=== PATIENT | male | born 1970 | race Two or more races ===

== ENCOUNTER 2020-08-02 20:37 | Inpatient (IN) | payer MEDICAID, SELFPAY ==
[~2020-08-02] VITALS: Ht 172.7 cm; Wt 90.3 kg
[2020-08-02 20:50] VITALS: BP 133/76
--- NOTE | 2020-08-02 21:04 | NUR ---
PT AMBUALTED TO BED 6 WITH STEADY GAIT. PT PLACED IN GOWN EKG BEING PERFORMED AT BEDSIDE.
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
[2020-08-02] MEDS ORDERED: NACL 0.9% 500 ML IV ONE (21:15)
[2020-08-02] MEDS ORDERED: ASPIRIN 81 MG TAB.CHEW PO ONE (21:15)
--- NOTE | 2020-08-02 21:18 | NUR ---
XRAY AT BEDSIDE.
--- NOTE | 2020-08-02 21:29 | NUR ---
LAB AT BEDSIDE.
[2020-08-02 21:39] LABS: BASOPHILS # (AUTO) 0.1 K/uL (0.00-0.22); BASOPHILS % (AUTO) 0.7 % (0.0-2.0); EOSINOPHILS # (AUTO) 0.3 K/uL (0-0.4); EOSINOPHILS % (AUTO) 2.4 % (0.0-4.0); HEMATOCRIT 40.5 % (36-52); HEMOGLOBIN 13.8 g/dL (12.0-18.0); LYMPHOCYTES # (AUTO) 3.2 K/uL (2.0-11.5); LYMPHOCYTES % (AUTO) 29.4 % (20.5-51.1); MEAN CORPUSCULAR HEMOGLOBIN 30 pg (27-31); MEAN CORPUSCULAR HGB CONC 34 g/dL (33-37); MEAN CORPUSCULAR VOLUME 89.3 fL (80-94); NEUTROPHILS # (AUTO) 6.5 K/uL (1.8-7.7); NEUTROPHILS % (AUTO) 58.5 % (42.2-75.2); PLATELET COUNT (AUTO) 227 K/uL (140-450); RED BLOOD CELL COUNT(AUTO) 4.53 MIL/uL (4.20-6.10); RED CELL DISTRIBUTION WIDTH 13.4 % (11.6-13.7)
[2020-08-02 21:58] LABS: PROTHROMBIN TIME 10.4 secs (10.8-13.4)
[2020-08-02 22:12] LABS: ALBUMIN 3.8 g/dL (3.4-5.0); ANION GAP 11.2 (8-16); CARBON DIOXIDE 27.5 mmol/L (21-32); CREATININE 0.9 mg/dL (0.6-1.3); POTASSIUM 3.7 mmol/L (3.5-5.1); TOTAL BILIRUBIN 0.2 mg/dL (0.0-1.0)
[2020-08-02] MEDS ORDERED: KETOROLAC 30 MG/ML VIAL IVP ONE (23:10)
--- NOTE | 2020-08-02 23:20 | NUR ---
PT GIVEN TORADOL FOR PAIN MANAGEMENT. PT PAIN 6/10 CHEST PAIN. PT REMAINS ON [employer]. VSS. BED IS LOCKED AND IN LOWEST POSTION.
--- NOTE | 2020-08-02 23:23 | NUR ---
LAB AT BEDSIDE.
--- NOTE | 2020-08-03 00:11 | NUR ---
PT O2SAT @ 92 % ON RA. PT GIVEN 2L OF O2. O2 SAT @ 98%. ERMD MADE AWARE.
--- NOTE | 2020-08-03 03:50 | NUR ---
PT COVID ANTIGEN COLLECTED AND SENT TO LAB.
--- NOTE | 2020-08-03 04:13 | NUR ---
PT AMBULATED TO RESTROOM WITH STEADY GAIT.
[2020-08-03] MEDS ORDERED: ALBUTEROL SULFATE/IPRATROPIU 3 ML SOL IH PRN (05:10)
--- NOTE | 2020-08-03 05:50 | NUR ---
Patient appears to be resting comfortably in bed. Pt remains on monitoring manager, vital signs within normal limits. Respirations even and unlabored. Bed is locked and in lowest position.
--- NOTE | 2020-08-03 07:24 | NUR ---
PATIENT HAS BEEN SCREENED AND CATEGORIZED MODERATE NUTRITION RISK. PATIENT WILL BE SEEN WITHIN 3-5 DAYS OF ADMISSION. 08/06/20-08/08/20 ANISA PEGUERO MS, RDN
--- NOTE | 2020-08-03 07:28 | NUR ---
REPORT GIVEN TO MARLENA MONTES DE OCA. TRANSFER OF CARE.
--- NOTE | 2020-08-03 07:30 | NUR ---
RECEIVED REPORT FROM HALIMA MONTES DE OCA. UNABLE TO CONFIRMED WITH HALIMA MONTES DE OCA WHETHER THE 0600 TROPONIN WAS DRAWN BY LAB. CALLED LAB, TECH STATES IT WAS NOT DRAWN, WILL COME DRAW PT NOW.
--- NOTE | 2020-08-03 07:38 | NUR ---
POTATO BUCKER AT BEDSIDE TO DRAW TROPONIN
--- NOTE | 2020-08-03 08:14 | NUR ---
PT SITTING UP IN BED, EATING BREAKFAST
--- NOTE | 2020-08-03 10:00 | NUR ---
PT AMB TO RESTROOM, STEADY GAIT
--- NOTE | 2020-08-03 10:04 | NUR ---
PT AMB BACK TO BED 06, STEADY GAIT. CONNECTED TO BEDSIDE MONITOR. NO PAIN AT THIS TIME.
[2020-08-03] MEDS ORDERED: DOCUSATE SODIUM 100 MG GELCAP PO PRN (13:20)
[2020-08-03] MEDS ORDERED: POTASSIUM CHLORIDE 10 MEQ TABER PO PRN (13:20)
[2020-08-03] MEDS ORDERED: LORazepam 2 MG/ML VIAL IM/IVP PRN (13:20)
[2020-08-03] MEDS ORDERED: ZOLPIDEM 5 MG TAB PO PRN (13:20)
[2020-08-03] MEDS ORDERED: MAG SULF 2000 MG/WATER PREMIX 50 ML IV PRN (13:20)
[2020-08-03] MEDS ORDERED: ACETAMINOPHEN 325 MG TAB PO PRN (13:20)
[2020-08-03] MEDS ORDERED: MORPHINE SULFATE 2 MG/ML SYR IVP PRN (13:20)
[2020-08-03] MEDS ORDERED: HYDROcodone/APAP 5/325 MG 1 TAB TAB PO PRN (13:20)
[2020-08-03] MEDS ORDERED: ONDANSETRON 4 MG/2 ML VIAL IM/IVP PRN (13:20)
--- NOTE | 2020-08-03 13:45 | NUR ---
SHEAR ASSEMBLER AT BEDSIDE FOR BLOOD DRAW, INCLUDING TROPONIN
[2020-08-03 14:05] LABS: BASOPHILS # (AUTO) 0.1 K/uL (0.00-0.22); BASOPHILS % (AUTO) 1.2 % (0.0-2.0); EOSINOPHILS # (AUTO) 0.2 K/uL (0-0.4); EOSINOPHILS % (AUTO) 1.8 % (0.0-4.0); HEMATOCRIT 41.8 % (36-52); HEMOGLOBIN 14.2 g/dL (12.0-18.0); LYMPHOCYTES # (AUTO) 2.5 K/uL (2.0-11.5); LYMPHOCYTES % (AUTO) 21.1 % (20.5-51.1); MEAN CORPUSCULAR HEMOGLOBIN 30 pg (27-31); MEAN CORPUSCULAR HGB CONC 34 g/dL (33-37); MEAN CORPUSCULAR VOLUME 89.3 fL (80-94); MONOCYTES # (AUTO) 1.3 K/uL (0.8-1.0); MONOCYTES % (AUTO) 10.6 % (1.7-9.3); NEUTROPHILS # (AUTO) 7.7 K/uL (1.8-7.7); NEUTROPHILS % (AUTO) 65.3 % (42.2-75.2); PLATELET COUNT (AUTO) 236 K/uL (140-450); RED BLOOD CELL COUNT(AUTO) 4.68 MIL/uL (4.20-6.10); RED CELL DISTRIBUTION WIDTH 13.2 % (11.6-13.7); WHITE BLOOD COUNT (AUTO) 11.8 K/uL (4.8-10.8)
[2020-08-03] MEDS: NACL 0.9% 1,000 ML IV SCH (14:12)
--- NOTE | 2020-08-03 14:14 | NUR ---
URINAL GIVEN TO PT, INSTRUCTED PT ON PROCEDURE FOR UA COLLECTION ORDERED BY ADMITTING DOC. PT VERBALIZED UNDERSTANDING & WILL PROVIDE URINE SAMPLE WHEN ABLE TO.
[2020-08-03 14:31] LABS: ANION GAP 10.8 (8-16); CARBON DIOXIDE 26.1 mmol/L (21-32); CREATININE 0.6 mg/dL (0.6-1.3); POTASSIUM 3.9 mmol/L (3.5-5.1)
[2020-08-03 14:45] LABS: CHOL/HDL RATIO 3.3 (1-4.5); MAGNESIUM 1.9 mg/dL (1.8-2.4); PHOSPHORUS 3.7 mg/dL (2.5-4.9); THYROID STIMULATING HORMONE 1.05 uIU/mL (0.34-3.74)
--- NOTE | 2020-08-03 15:01 | NUR ---
urine sample and MRSA sample handed to sewage treatment plant operator
[2020-08-03 15:03] LABS: PROTHROMBIN TIME 10.4 secs (10.8-13.4)
--- NOTE | 2020-08-03 17:27 | NUR ---
Dr. Holder evaluating pt at bedside
--- NOTE | 2020-08-03 18:00 | NUR ---
Patient will be admitted to care of Dr. SON. Admited to TELE. Will go to room 111B. Belongings list completed. Report to TAVON FULLER.
--- NOTE | 2020-08-03 18:00 | NUR ---
PATIENT ARRIVED FROM ER, ABLE TO AMBULATE WITH STEADY GAIT TO [facility]. NO DISTRESS NOTED. DENIES ANY PAIN. RESPIRATIONS EVEN, UNLABORED, ON ROOM AIR. IV SITE INTACT, PATENT, AND INFUSING IVF PER MD ORDERS. ORIENTED PATIENT TO ROOM AND CALL LIGHT. REVIEWED PLAN OF CARE WITH PATIENT. PATIENT VERBALIZED UNDERSTANDING. SAFETY MEASURES IN PLACE, CALL LIGHT WITHIN REACH. WILL CONTINUE TO MONITOR.
[2020-08-03 18:03] LABS: APPEARANCE,URINE CLEAR (CLEAR); BILIRUBIN,URINE NEGATIVE (NEGATIVE); BLOOD, URINE NEGATIVE (NEGATIVE); COLOR,URINE YELLOW (YELLOW); LEUKOCYTE ESTERASE ,URINE NEGATIVE (NEGATIVE); NITRITE, URINE NEGATIVE (NEGATIVE); PH,URINE 6.5 (5.0-9.0); UGLUCOSE 3+ (NEGATIVE)
[2020-08-03 18:23] LABS: BARBITURATE, URINE NEGATIVE ng/ml (NEG <=200); BENZODIAZEPINE, URINE NEGATIVE ng/mL (NEG <=200); CANNABINOID, URINE NEGATIVE ng/mL (NEG <=50); COCAINE, URINE NEGATIVE ng/mL (NEG <=300); OPIATE, URINE NEGATIVE ng/mL (NEG <=2000); PHENCYCLIDINE SCREEN,URINE NEGATIVE ng/mL (NEG <=25)
--- NOTE | 2020-08-03 19:15 | NUR ---
RECEIVED PT BEDSIDE REPORT FROM DAYSHIFT NURSE. NEW ADMIT FROM ER. TELE PATIENT. AWAKE AND ALERT TIMES 4. RESPIRATION EVEN UNLABORED ON ROOM AIR. SKIN INTACT AND DRY WITH HEPLOCK LEFT WRIST 22 GAUGE. CLEAR AND PATENT. ORIENTED TO HOSPITAL ROUTINE. PLAN OF CARE DISCUSSED AND VERBALIZE UNDERSTANDING. BED IN LOW POSITION AND CALL LIGHT WITHIN REACH. WILL CONTINUE TO MONITOR.
--- NOTE | 2020-08-03 19:25 | NUR ---
GAVE REPORT TO POLICE ARTIST NURSE FOR CONTINUITY OF CARE. PATIENT IN STABLE CONDITION.
[2020-08-03 20:00] VITALS: BP 137/81
--- NOTE | 2020-08-03 21:20 | NUR ---
XRAY OF THE SCAPULA DONE AT BEDSIDE. WILL FOLLOW UP WITH RESULTS
--- NOTE | 2020-08-03 22:30 | NUR ---
INSTRUCTED PT NOT TO EAT OR DRINK ANYTHING FROM [place] UNTIL US ABDOMEN DONE IN AM. VERBALIZED UNDERSTANDING.
[2020-08-04] VITALS: BP 107/61
--- NOTE | 2020-08-04 01:00 | NUR ---
MADE ROUNDS. PT ASLEEP. NO S/S OF ANY DISCOMFORT NOTED.
--- NOTE | 2020-08-04 02:53 | NUR ---
LATE ENTRY----- NS BOLUS DISCONTINUED AT 0400
--- NOTE | 2020-08-04 03:00 | NUR ---
MADE ROUNDS. PT IS SLEEPING. NO S/S OF DISCOMFORT. WILL CONTINUE TO MONITOR.
[2020-08-04 04:00] VITALS: BP 114/70
--- NOTE | 2020-08-04 05:19 | NUR ---
PT CC 6/10 PAIN IN CHEST. PT MEDICATED WITH NORCO. WILL REASSESS IN AN HOUR.
[2020-08-04] MEDS: NACL 0.9% 1,000 ML IV SCH (06:00)
--- NOTE | 2020-08-04 06:30 | NUR ---
CHECKED PT. PT ASLEEP LAYING IN BED. NO S/S OF RESPIRATORY DISTRESS. WILL CONTINUE TO MONITOR.
--- NOTE | 2020-08-04 07:30 | NUR ---
ENDORSED PT IN STABLE CONDITION TO AM NURSE
[2020-08-04 07:35] LABS: BASOPHILS # (AUTO) 0.1 K/uL (0.00-0.22); BASOPHILS % (AUTO) 1.2 % (0.0-2.0); EOSINOPHILS # (AUTO) 0.2 K/uL (0-0.4); EOSINOPHILS % (AUTO) 2.3 % (0.0-4.0); HEMATOCRIT 41.5 % (36-52); HEMOGLOBIN 14.2 g/dL (12.0-18.0); LYMPHOCYTES # (AUTO) 2.1 K/uL (2.0-11.5); LYMPHOCYTES % (AUTO) 22.5 % (20.5-51.1); MEAN CORPUSCULAR HEMOGLOBIN 31 pg (27-31); MEAN CORPUSCULAR HGB CONC 34 g/dL (33-37); MEAN CORPUSCULAR VOLUME 89.8 fL (80-94); MONOCYTES % (AUTO) 10.1 % (1.7-9.3); NEUTROPHILS % (AUTO) 63.9 % (42.2-75.2); PLATELET COUNT (AUTO) 224 K/uL (140-450); RED BLOOD CELL COUNT(AUTO) 4.63 MIL/uL (4.20-6.10); RED CELL DISTRIBUTION WIDTH 13.2 % (11.6-13.7); WHITE BLOOD COUNT (AUTO) 9.5 K/uL (4.8-10.8)
[2020-08-04 07:37] LABS: ANION GAP 10.8 (8-16); CARBON DIOXIDE 27.4 mmol/L (21-32); CREATININE 0.6 mg/dL (0.6-1.3); POTASSIUM 4.2 mmol/L (3.5-5.1)
[2020-08-04 07:39] LABS: PHOSPHORUS 2.9 mg/dL (2.5-4.9)
--- NOTE | 2020-08-04 07:47 | NUR ---
REC'D REPORT FROM NIGHT NURSE, PT AWAKE, ALERT, STABLE, COMFORTABLE IN BED. CALL LIGHT WITHIN REACH, BED LOWEST POSITION. IV SITE L.HAND, DRY, CLEAN INTACT PATENT RUNNING NS 60ML/HR. WILL CONTINUE TO MONITOR
[2020-08-04 08:07] LABS: T4 (THYROXINE) 8.8 ug/dL (4.5-12.0)
[2020-08-04 08:10] VITALS: BP 114/85
[2020-08-04] MEDS ORDERED: IBUP-1842 PO (08:48)
[2020-08-04] MEDS ORDERED: NICOTINE TRANSD SYS 14 MG/24 HR PATCH TD SCH (09:00)
--- NOTE | 2020-08-04 09:40 | NUR ---
ADMINISTERED SCHEDULED MEDICATION PER DRKimberly'S ORDER, HEPARING SUNCUTANEOUS GIVEN ON L. ABD ADIPOSE TISSUE, NICOTINE PATCH APPLIED TO L. UPPER EXTREMITY. IV INTACT, DRY, PATENT, S1S2 NOTED, LUISA LUNGS CLEAR, NO EDEMA. PT ABD SOFT, NONTENDER. C/O CONSTIPATION. WILL PROVIDE STOOL SOFTENER INDICATED PRN. DENIES CHEST PAIN AT THIS TIME
--- NOTE | 2020-08-04 09:50 | NUR ---
IMAGING AT PT'S BEDSIDE FOR ABD ULTRASOUND
[2020-08-04] MEDS ORDERED: FLU VACCINE QS2020-21 0.5 ML SYR IMVAC PRN (11:40)
[2020-08-04 12:00] VITALS: BP 128/69
== END 2020-08-04 13:00 | disposition home or self-care (01) | DRG 203 ==
LOC: MED 20:37 → MTU 08-03 00:26
PROVIDERS: ADMIT Family Medicine; ATTEND Family Medicine
DX: M94.0 Chondrocostal junction syndrome [Tietze] (principal); Z23 Encounter for immunization; Z20.828 Contact with and (suspected) exposure to other viral communicable diseases; I24.9 Acute ischemic heart disease, unspecified; F17.210 Nicotine dependence, cigarettes, uncomplicated; R73.03 Prediabetes; Z87.828 Personal history of other (healed) physical injury and trauma
CPT/HCPCS: 36415; 71045; 73000; 76700; 80048; 80053; 80305; 81003; 82150; 83036; 83690; 83735; 83880; 84100; 84134; 84436; 84443; 84484; 85025; 85610; 85730; 87081; 93005; 96361; 96374; 97116; 97161-GP; 99285; J1644; J1885

== ENCOUNTER 2022-03-16 08:37 | Emergency (ER) | payer BC, MEDICAID ==
[~2022-03-16] VITALS: Ht 161.3 cm; Wt 89.4 kg
[~2022-03-16 08:37] MED LIST: IBUP-1842 PO
[2022-03-16 08:51] VITALS: BP 153/75
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
--- NOTE | 2022-03-16 09:30 | NUR ---
PT AMBULATED TO RESTROOM WITH STEADY GAIT
[2022-03-16] MEDS: ACETAMINOPHEN EXTRA STRENGTH 500 MG TAB PO ONE (09:59)
[2022-03-16] MEDS: KETOROLAC 30 MG/ML VIAL IM ONE (10:02)
[2022-03-16] MEDS: LIDOCAINE 5% 1 EA PATCH TP SCH (10:06)
[2022-03-16] MEDS ORDERED: NAPR-1704 PO (10:17)
[2022-03-16] MEDS ORDERED: LID5T TP (10:17)
[2022-03-16] MEDS ORDERED: ACET-10509 PO (10:17)
[2022-03-16] MEDS ORDERED: BACL10TA4 PO (10:17)
[2022-03-16 10:40] VITALS: BP 123/79
--- NOTE | 2022-03-16 10:40 | NUR ---
Patient discharged with v/s stable. Written and verbal after care instructions about contusion, spondylolysis given and explained. Patient alert, oriented and verbalized understanding of instructions. Ambulatory with steady gait. All questions addressed prior to discharge. ID band removed. Patient advised to follow up with PMD. Rx of Acetaminophen, Baclofen, Lidocaine Patch, Naproxen given. Patient educated on indication of medication including possible reaction and side effects. Opportunity to ask questions provided and answered.
== END 2022-03-16 10:40 | disposition home or self-care (01) ==
LOC: MED 08:37
DX: S30.0XXA Contusion of lower back and pelvis, initial encounter (principal); M47.816 Spondylosis without myelopathy or radiculopathy, lumbar region; I10 Essential (primary) hypertension; Z79.899 Other long term (current) drug therapy; Z79.1 Long term (current) use of non-steroidal anti-inflammatories (NSAID); W01.0XXA Fall on same level from slipping, tripping and stumbling without subsequent striking against object, initial encounter; Y93.01 Activity, walking, marching and hiking; Y92.89 Other specified places as the place of occurrence of the external cause; Y99.8 Other external cause status
CPT/HCPCS: 72110; 96372; 99283; J1885

== ENCOUNTER 2023-01-29 03:19 | Emergency (ER) | payer BC, MEDICAID ==
[~2023-01-29] VITALS: Ht 167.6 cm; Wt 87.7 kg
[~2023-01-29 03:19] MED LIST changes: +ACET-10509 PO; +BACL10TA4 PO; +LID5T TP; +NAPR-1704 PO
[2023-01-29 03:20] VITALS: BP 150/73
--- NOTE | 2023-01-29 03:23 | NUR ---
TO LOBBY A/W BED AMBULATORY
[2023-01-29 04:36] LABS: APPEARANCE,URINE CLEAR (CLEAR); BILIRUBIN,URINE NEGATIVE (NEGATIVE); BLOOD, URINE NEGATIVE (NEGATIVE); COLOR,URINE YELLOW (YELLOW); LEUKOCYTE ESTERASE ,URINE NEGATIVE (NEGATIVE); NITRITE, URINE NEGATIVE (NEGATIVE); UGLUCOSE 3+ (NEGATIVE)
--- NOTE | 2023-01-29 04:49 | NUR ---
PT TO US VIA W/C
[2023-01-29] MEDS ORDERED: ONDANSETRON 4 MG ODT PO ONE (04:50)
[2023-01-29 05:09] LABS: RBC,URINE NONE SEEN /HPF (0-5)
--- NOTE | 2023-01-29 05:09 | NUR ---
PT RETURNED TO LOBBY S/P US
[2023-01-29] MEDS ORDERED: KETOROLAC 30 MG/ML VIAL IM ONE (06:05)
--- NOTE | 2023-01-29 10:22 | NUR ---
DR HONG AT PT SIDE FOR REEVAL
[2023-01-29] MEDS ORDERED: LEVO-481 PO (10:27)
[2023-01-29 10:32] VITALS: BP 120/66
--- NOTE | 2023-01-29 10:33 | NUR ---
Patient discharged with v/s stable. Written and verbal after care instructions given and explained. Patient alert, oriented and verbalized understanding of instructions. Ambulatory with steady gait. All questions addressed prior to discharge. ID band removed. Patient advised to follow up with PMD. Rx of LEVOFLOXACIN given. Patient educated on indication of medication including possible reaction and side effects. Opportunity to ask questions provided and answered.
== END 2023-01-29 10:32 | disposition home or self-care (01) ==
LOC: MED 03:19
DX: N50.812 Left testicular pain (principal); R11.2 Nausea with vomiting, unspecified; F17.290 Nicotine dependence, other tobacco product, uncomplicated; Z79.899 Other long term (current) drug therapy
CPT/HCPCS: 76870; 81001; 87086; 96372; 99285; J1885; Q0162

== ENCOUNTER 2023-05-08 13:23 | Emergency (ER) | payer MEDICAID ==
[~2023-05-08] VITALS: Ht 172.7 cm; Wt 89.8 kg
[~2023-05-08 13:23] MED LIST changes: +LEVO-481 PO
[2023-05-08 13:31] VITALS: BP 119/57; PULSE 84; RESP 22; TEMP 98.9
[2023-05-08] MEDS ORDERED: KETOROLAC 15 MG/ML VIAL IVP ONE (14:10)
[2023-05-08] MEDS ORDERED: NACL 0.9% 1,000 ML IV ONE (14:10)
[2023-05-08] MEDS ORDERED: FAMOTIDINE 20 MG/2 ML VIAL IVP ONE (14:10)
[2023-05-08 15:00] LABS: HEMATOCRIT 42.2 % (36-52); HEMOGLOBIN 14.2 g/dL (12.0-18.0); MEAN CORPUSCULAR HEMOGLOBIN 30 pg (27-31); MEAN CORPUSCULAR HGB CONC 34 g/dL (33-37); PLATELET COUNT (AUTO) 160 K/uL (140-450); RED BLOOD CELL COUNT(AUTO) 4.74 MIL/uL (4.20-6.10); RED CELL DISTRIBUTION WIDTH 13.4 % (11.6-13.7); WHITE BLOOD COUNT (AUTO) 20.4 K/uL (4.8-10.8)
[2023-05-08 15:04] VITALS: BP 119/57; PULSE 84; RESP 22; TEMP 98.9
[2023-05-08 15:12] LABS: ANION GAP 9.2 (8-16); CALCIUM 8.7 mg/dL (8.5-10.1); CARBON DIOXIDE 26.8 mmol/L (21-32); CREATININE 0.9 mg/dL (0.6-1.3); TOTAL BILIRUBIN 0.6 mg/dL (0.0-1.0); TOTAL PROTEIN, SERUM 6.9 g/dL (6.4-8.2)
[2023-05-08 15:20] VITALS: O2SAT 99
[2023-05-08 15:33] LABS: APPEARANCE,URINE CLEAR (CLEAR); BILIRUBIN,URINE NEGATIVE (NEGATIVE); BLOOD, URINE 2+ (NEGATIVE); COLOR,URINE YELLOW (YELLOW); LEUKOCYTE ESTERASE ,URINE 2+ (NEGATIVE); NITRITE, URINE POSITIVE (NEGATIVE); PROTEIN,URINE 1+ (NEGATIVE); UGLUCOSE TRACE (NEGATIVE); UROBILINOGEN,URINE 0.2 EU/dL (0.2 - 1)
[2023-05-08 15:47] LABS: BACTERIA,URINE FEW /HPF (None Seen); MUCUS,URINE 1+ /LPF (None Seen); RBC,URINE 11-20 (MOD) /HPF (0-5); SQUAMOUS EPITHELIAL CELL,UR 4-10 (MOD) /LPF (0-3 (FEW)); TRICHOMONAS,URINE None Seen /HPF (None Seen); WBC,URINE 20-60 /HPF (0-5); YEAST,URINE None Seen /HPF (None Seen)
[2023-05-08 15:58] LABS: FLU A ANTIGEN negative (NEGATIVE); FLU B ANTIGEN negative (NEGATIVE)
[2023-05-08] MEDS ORDERED: CEPH-588 PO (16:10)
[2023-05-08 16:12] LABS: BASOPHILS % (MANUAL) 2 % (0-2); EOSINOPHILS % (MANUAL) 0 % (0-4); LYMPHOCYTES % (MANUAL) 13 % (20-46); METAMYELOCYTES % 1 % (0-0); MONOCYTES % (MANUAL) 13 % (5-12)
[2023-05-08 16:13] LABS: SMUDGE CELLS FEW
== END 2023-05-08 16:24 | disposition home or self-care (01) ==
LOC: MED 13:23
DX: R53.1 Weakness (principal); Z20.822 Contact with and (suspected) exposure to COVID-19; Z79.899 Other long term (current) drug therapy
CPT/HCPCS: 36415; 71045; 80053; 81001; 82553; 83690; 85025; 87086; 87426; 87804; 96361; 96374; 96375; 99284; J1885; J3490; J7030

== ENCOUNTER 2023-06-07 10:33 | Emergency (ER) | payer MEDICAID ==
[~2023-06-07] VITALS: Ht 167.6 cm; Wt 86.2 kg
[~2023-06-07 10:33] MED LIST changes: +CEPH-588 PO
[2023-06-07 10:46] VITALS: BP 133/67; PULSE 82; RESP 18; TEMP 100.1; O2SAT 96
[2023-06-07] MEDS ORDERED: KETOROLAC 30 MG/ML VIAL IM ONE (16:15)
[2023-06-07 16:56] LABS: APPEARANCE,URINE CLEAR (CLEAR); BILIRUBIN,URINE NEGATIVE (NEGATIVE); BLOOD, URINE 2+ (NEGATIVE); COLOR,URINE YELLOW (YELLOW); LEUKOCYTE ESTERASE ,URINE 3+ (NEGATIVE); NITRITE, URINE POSITIVE (NEGATIVE); PH,URINE 6.5 (5.0-9.0); PROTEIN,URINE NEGATIVE (NEGATIVE); UGLUCOSE NEGATIVE (NEGATIVE); UROBILINOGEN,URINE 0.2 EU/dL (0.2 - 1)
[2023-06-07 17:15] LABS: BACTERIA,URINE >30 (MANY) /HPF (None Seen); SQUAMOUS EPITHELIAL CELL,UR 4-10 (MOD) /LPF (0-3 (FEW))
[2023-06-07] MEDS ORDERED: LEVO-481 PO (17:35)
[2023-06-07] MEDS ORDERED: cefTRIAXone 500 MG in LIDOCAINE MPF 1% 1 ML IM ONE (17:40)
[2023-06-07] MEDS ORDERED: cefTRIAXone 500 MG VIAL ONE (17:42)
[2023-06-07] MEDS ORDERED: LIDOCAINE MPF 1% 5 ML ONE (17:43)
[2023-06-07 17:47] VITALS: BP 129/63; PULSE 80; RESP 18; TEMP 99.2; O2SAT 96
== END 2023-06-07 17:47 | disposition home or self-care (01) ==
LOC: MED 10:33
DX: N45.1 Epididymitis (principal); Z79.899 Other long term (current) drug therapy
CPT/HCPCS: 76870; 81001; 87086; 87491; 96372; 99285; J0696; J1885; J2001